=== PATIENT | female | born 1950 | race Caucasian/White ===

== ENCOUNTER → 2020-09-20 | Outpatient (CLI) | payer MEDICARE ==
[~2020-09-20] MED LIST: IOPAMIDOL 370 MG/ML 200 ML INFUS..BTL INJ ONE; METOPROLOL TARTRATE 25 MG TAB ONE; METOPROLOL TARTRATE INJ 1 MG/ML VIAL ONE; NITROGLYCERIN 0.4 MG SUBL ONE; SODIUM CHLORIDE 0.9% 100 ML ONE
[2020-09-20 08:15] LABS: BLOOD UREA NITROGEN 8 mg/dL (7-26); BUN/CREATININE RATIO 10 (6-25); CREATININE, SERUM 0.77 mg/dL (0.57-1.11); EST GLOMERULAR FILTRATION RATE > 60 ML/MIN (60-)
--- NOTE | 2020-09-20 15:40 | Diagnostic Imaging Report ---
EXAM: CALCIUM SCORE AND CORONARY CTA INDICATION: ^[id number] ^CHEST PAIN COMPARISON: None. TECHNIQUE: Multi-detector CT technology was employed (64 MDCT [employer]). Minimal slice thickness with retrospective gating was performed following the intravenous administration of contrast material. The patient was premedicated with 20 mg by mouth and 2.5 mg i.v. metoprolol and 0.4 mg sublingual nitroglycerin for heart rate control and coronary dilation, respectively. IV CONTRAST: 100 mL of Isovue-370 ORAL CONTRAST: None COMPLICATIONS: None RADIATION DOSE: Total DLP: 1453 mGy*cm Estimated effective dose: (DLP x 0.015 x size factor) mSv CTDIvol has been reviewed. It is below the limits set by the Radiation Protocol Committee (RPC). For optimization of anatomic evaluation, multiplanar reconstruction, maximum intensity projections, and advanced 3-D off-line postprocessing were performed on a dedicated stand-alone workstation under the direct supervision of the interpreting physician. QUALITY: Motion artifact limits evaluation of the mid ICA, otherwise, quality is Excellent FINDINGS: CALCIUM SCORE: The observed Agatston Calcium Score of 244 is at percentile between 75 and 90% for subjects of the same age and gender who are free of clinical cardiovascular disease and treated diabetes. The Agatston score for each vessel is as follows: LM: 0 LAD: 89.3 LCx: 61.1 RCA: 93.6 DISTRIBUTION OF THE CALCIFIED PLAQUES: Mild to moderate scattered calcified plaque throughout the coronary arteries. CORONARY ANATOMY: There is normal origin of the coronary arteries. Left Main Coronary Artery: The left main is normal sized vessel that bifurcates into the LAD and circumflex. There is no evidence of atherosclerotic changes or stenotic disease. Left Anterior Descending Coronary Artery: The LAD is a normal size vessel that wraps around the apex. It gives rise to 3 acute diagonal branches. Few scattered calcified plaques resulting in minimal stenosis (1-24 %) in the proximal and mid segments. No evidence of severe stenosis. Left Circumflex Coronary Artery: The LCX is a normal but tortuous size vessel, which is non-dominant. It gives rise to 1 obtuse marginal branches. Few scattered calcified plaques in the proximal segment resulting in minimal stenosis (1-24%). Otherwise, no severe stenosis in the LCx. Right Coronary Artery: The RCA is a normal size vessel, which is dominant. It gives rise to a conus branch, AV shirley branch, and 2 acute marginal branches. In its distal segment it bifurcates into the PDA and PV branch. Mixed complex plaque in the mid segment of the AV groove, which is limitedly evaluated due to motion artifact but appears to result in 50-60% stenosis. Few additional scattered tiny calcified plaques without significant obstruction. CARDIAC MORPHOLOGY AND FUNCTION: The right and left atria and ventricles are morphologically normal. There is normal resting global left ventricular systolic function. LVEF: 66%, LV end diastolic volume: 92.8 cc LV end systolic volume: 31.3 cc LV stroke volume: LVSV cc LIMITED CHEST: Limited views of the visualized chest show no abnormality within chest wall and mediastinum. No mediastinal lymphadenopathy. The visualized lungs are clear. The left atrium is enlarged. The visualized portions of the ascending and descending thoracic aorta are of normal size. Small hiatal hernia. LIMITED ABDOMEN: Limited images of the upper abdomen reveal no abnormalities of the visualized organs. BONES/SOFT TISSUES: No acute osseous abnormalities. Partially visualized bilateral breast implants. IMPRESSION: 1. Total Agatston Calcium Score: 244 that corresponds to percentile between 75 and 90%%, representing moderate plaque burden. 2. Normal coronary anatomy. 3. Scattered calcified plaques throughout the coronary arteries resulting in: - Few focal areas of minimal stenosis (1-24%) in the LAD and LCx. - Mixed plaque in the mid RCA is suboptimally evaluated due to motion artifact but suspected to result in at least moderate stenosis (approximately 50-60%). CAD-ANA: possibly 3 Recommendation: Recommend correlation with nuclear medicine stress test for presence of ischemia in the inferior wall. Reference: J Cardiovasc Comput Tomogr. May-Jun 2016;10(4):269-81. Signed by: Dr. Stormy Espinosa M.D. on 09/20/2020 3:37 PM
== END ==
LOC: CT 07:26
PROVIDERS: ATTEND Internal Medicine Cardiovascular Disease
DX: R07.9 Chest pain, unspecified (principal)
CPT/HCPCS: 36415; 75574; 82565; 84520; J7050; Q9967